=== PATIENT | female | born 1965 | race Caucasian/White ===

== ENCOUNTER 2018-01-11 01:30 | Emergency (ER) | payer BC, OTHER ==
[~2018-01-11] VITALS: Ht 170.2 cm; Wt 74.0 kg
[~2018-01-11 01:30] MED LIST: BISO10TA5 PO; FLUO10TA PO; LOTE0.5O EACH EYE; VITA100T65 PO
[2018-01-11 01:53] VITALS: BP 119/56; PULSE 56; RESP 18; TEMP 98.1; O2SAT 98
[2018-01-11] MEDS ORDERED: AMOXICILLIN/CLAVULANATE K 875 MG TAB PO ONE (02:45)
[2018-01-11] MEDS ORDERED: IBUPROFEN 800 MG TAB PO ONE (02:45)
--- NOTE | 2018-01-11 03:04 | RADRPT ---
EXAM DATE: 01/11/2018 3:00 AM EDT AGE/SEX: 52 years / Female INDICATIONS: Fracture, dog bite. CLINICAL DATA: This is the patient's initial encounter. Patient reports that signs and symptoms have been present for 1 day and indicates a pain score of 6/10. MEDICAL/SURGICAL HISTORY: None. None. COMPARISON: No prior [facility] exams available for comparison. FINDINGS: Bony structures are intact and in normal alignment. Osseous density is normal. I believe a broad soft tissue laceration dorsally of the hand. No radiopaque foreign bodies seen. CONCLUSION: No fracture or radiopaque foreign body. Electronically signed by: Chico Orellana MD 01/11/2018 3:03 AM EDT
[2018-01-11] MEDS ORDERED: PERC5TAB12 PO (03:31)
[2018-01-11] MEDS ORDERED: AUGM875T3 PO (03:31)
--- NOTE | 2018-01-11 03:32 | PD ---
HPI Chief Complaint: Bite or Sting Time Seen by Provider: 02:45 Travel History International Travel<30 days: No Contact w/Intl Traveler<30days: No Traveled to known affect area: No History of Present Illness HPI 52-year-old female presents to the emergency department for evaluation of dog bite to the right hand. Injury occurred just prior to arrival to the emergency department. Patient was trying to take a candy bar/recent prescription from her dog from underneath the bed and the dog has food aggression and bit her hand. Patient is right-handed. Injury occurred to the right hand. Patient's tetanus status is current. Animals vaccines are current. Patient states that attack was provoked accidentally. Patient denies any numbness tingling or weakness of the digits of the hand but does have pain and is concerned about a fracture. Patient takes no blood thinning agents and is not diabetic. PFSH Past Medical History Narrative Medical Hypertension anxiety depression; nursing notes reviewed Anxiety: Yes Depression: Yes Cardiovascular Problems: Yes (HTN) Diminished Hearing: No Hypertension: Yes Tetanus Vaccination: < 5 Years Influenza Vaccination: Yes ?: Not : 6 Para: 3 Miscarriage: 3 Tubal Ligation: Yes Past Surgical History Tonsillectomy: Yes Other Surgery: Yes (CERVICAL FUSION) Social History Alcohol Use: Yes (OCCASSIONAL) Tobacco Use: No Substance Use: No Allergies-Medications (Allergen,Severity, Reaction): Coded Allergies: omeprazole (Verified Allergy, Severe, 04/22/17) Reported Meds & Prescriptions Reported Meds & Active Scripts Active Percocet (Oxycodone-Acetaminophen) 5-325 mg Tab 1 Tab PO Q6H PRN Augmentin (Amoxicillin-Clavulanate) 875-125 Mg Tab 1 Tab PO BID 10 Days Reported Vitamin E 100 Unit Tab 100 Units PO DAILY Fluoxetine (Fluoxetine HCl) 10 Mg Tab 10 Mg PO DAILY Bisoprolol (Bisoprolol Fumarate) 10 Mg Tab 10 Mg PO DAILY Review of Systems Except as stated in HPI: all other systems reviewed are Neg Physical Exam Narrative GENERAL: Well-developed well-nourished female no acute distress no respiratory distress SKIN: Warm and dry. MUSCULOSKELETAL: No cyanosis, or edema. Attention right hand 1 cm laceration dorsum of the hand 2 puncture wounds to the palmar aspect 1/2 cm and 1/2 cm bleeding controlled patient is able to perform partial flexion and extension but causes pain digits are neurovascular tendon intact with less than 2 second capillary refill. No obvious deformity small amount of bruising. Data Data Last Documented VS Vital Signs Date Time Temp Pulse Resp B/P (MAP) Pulse Ox O2 Delivery O2 Flow Rate FiO2 01/11/18 03:34 01/11/18 01:53 98.1 56 18 98 Orders Orders Hand, Complete (Hbr4hnt) (01/11/18 ) Wound Care (01/11/18 02:45) Amoxicil-Clavulanate (Augmentin) (01/11/18 02:45) Ibuprofen (Motrin) (01/11/18 02:45) Wound Care (01/11/18 03:25) Ed Discharge Order (01/11/18 03:25) MDM Medical Decision Making Medical Screen Exam Complete: Yes Emergency Medical Condition: Yes Medical Record Reviewed: Yes Differential Diagnosis Puncture wound, laceration, retained foreign body, fracture, neurovascular tendon injury Narrative Course Wound site cleansed and normal saline and dilute Betadine; imaging study ordered Imaging study no evidence of fracture or retained bony injury Polysporin dressing applied patient given first dose of Augmentin 875 and ibuprofen 800 mg Patient is stable for outpatient management and follow-up with primary care provider and hand surgeon Diagnosis Primary Impression: Dog bite of hand Qualified Codes: S61.451A - Open bite of right hand, initial encounter; W54.0XXA - Bitten by dog, initial encounter Referrals: Hand Surgeon 2 days Call office in 2 days to schedule appointment; on-call hand surgeon Dr. Cano Primary Care Physician 2 days Patient Instructions: General Instructions Departure Forms: Tests/Procedures, Work Release Special Instructions: no work x 2 days Additional Instructions: Elevate hand May apply ice intermittently to right hand to area soft tissue swelling Complete course of antibiotic as prescribed May use ibuprofen 600 mg as often as every 6 hours or maximum dose of 800 mg as often as every 8 hours for pain associated with inflammation or for fever 100.4 F or greater Use acetaminophen/Tylenol every 4-6 hours as needed for fever 100.4F or greater Given 2 day wound check with primary care provider and follow-up with hand surgeon call office to schedule appointment Return to the emergency department for any concerns pain fever drainage or change in condition No work 2 days Med/Other Pt SpecificInfo: Prescription(s) given Scripts Oxycodone-Acetaminophen (Percocet) 5-325 mg Tab 1 TAB PO Q6H Y for PAIN, #5 TAB 0 Refills Prov: Guillermina Casillas MD 01/11/18 Amoxicillin-Clavulanate (Augmentin) 875-125 Mg Tab 1 TAB PO BID for Infection for 10 Days, #20 TAB 0 Refills Prov: Guillermina Casillas MD 01/11/18 Disposition: 01 DISCHARGE HOME Condition: Stable Guillermina Casillas MD January 11, 2018 03:32
== END 2018-01-11 03:45 | disposition home or self-care (01) ==
LOC: PHED 01:30
DX: S61.451A Open bite of right hand, initial encounter (principal); I10 Essential (primary) hypertension; F32.9 Major depressive disorder, single episode, unspecified; F41.9 Anxiety disorder, unspecified; W54.0XXA Bitten by dog, initial encounter; Z79.899 Other long term (current) drug therapy; Z88.8 Allergy status to other drugs, medicaments and biological substances
CPT/HCPCS: 73130; 99283